=== PATIENT | male | born 1950 | race Caucasian/White ===

== ENCOUNTER → 2017-10-30 | Outpatient (CLI) | payer MEDICARE ==
[~2017-10-30] MED LIST: AMLO5TAB2 PO; ASPI-621 PO; ATOR20TA PO; CLOP75TA PO; HYDR-3342 PO; LISI40TA PO; MAGNESIUM PO; METO50TA82 PO; PANT40TA5 PO; SERT50TA5 PO; VARD20TA2 PO; ZOLP5TAB6 PO
== END ==
LOC: CVU 09:37
PROVIDERS: ATTEND Internal Medicine Cardiovascular Disease
DX: I35.0 Nonrheumatic aortic (valve) stenosis (principal); I51.7 Cardiomegaly; I25.10 Atherosclerotic heart disease of native coronary artery without angina pectoris; I71.9 Aortic aneurysm of unspecified site, without rupture; I10 Essential (primary) hypertension; E78.5 Hyperlipidemia, unspecified; Z86.73 Personal history of transient ischemic attack (TIA), and cerebral infarction without residual deficits
CPT/HCPCS: 93306

== ENCOUNTER → 2017-11-24 | Outpatient (CLI) | payer MEDICARE ==
[~2017-11-24] MED LIST changes: +REGADENOSON 0.4 MG/5 ML SYRINGE ONE
== END | disposition home or self-care (01) ==
LOC: CFH 07:37
PROVIDERS: ATTEND Physician Assistant Medical
DX: I25.10 Atherosclerotic heart disease of native coronary artery without angina pectoris (principal)
CPT/HCPCS: 78452; 93017; A9502; J2785

== ENCOUNTER → 2020-12-21 | Outpatient (CLI) | payer MEDICARE ==
[~2020-12-21] MED LIST changes: +AMLO-150 PO; -AMLO5TAB2 PO; -ASPI-621 PO; +ASPI81TA45 PO; -LISI40TA PO; +LISI40TA9 PO; -PANT40TA5 PO; +PANT40TA6 PO; +SERT50TA28 PO; -SERT50TA5 PO
== END | disposition home or self-care (01) ==
LOC: CFH 08:04
PROVIDERS: ATTEND Internal Medicine Cardiovascular Disease
DX: I21.19 ST elevation (STEMI) myocardial infarction involving other coronary artery of inferior wall (principal); I25.9 Chronic ischemic heart disease, unspecified; R07.9 Chest pain, unspecified; I10 Essential (primary) hypertension; I48.0 Paroxysmal atrial fibrillation
CPT/HCPCS: 78452; 93017; A9502; J2785

== ENCOUNTER 2021-01-15 08:03 | Observation (INO) | payer MEDICARE ==
[~2021-01-15] VITALS: Ht 175.3 cm; Wt 98.9 kg
[~2021-01-15 08:03] MED LIST changes: -REGADENOSON 0.4 MG/5 ML SYRINGE ONE
[2021-01-15] MEDS ORDERED: NITROGLYCERIN 5 MG/ML, 10ML ONE (08:24)
[2021-01-15 08:59] LABS: BASOPHILS % (AUTO) 1 % (0-1); EOSINOPHILS % (AUTO) 2 % (1-7); LYMPHOCYTES % (AUTO) 13 % (22-44); MEAN CORPUSCULAR HEMOGLOBIN 30.9 pg (27.5-34.5); MEAN PLATELET VOLUME 8.4 fL (7.4-10.4); MONOCYTES % (AUTO) 12 % (2-9); NEUTROPHILS % (AUTO) 72 % (42-75); PLATELET COUNT 228 x10^3/uL (130-400); RED BLOOD COUNT 5.32 x10^6/uL (4.38-5.82); RED CELL DISTRIBUTION WIDTH 14.6 % (9.4-14.8)
[2021-01-15] MEDS ORDERED: PRIM50TA34 PO (09:06)
[2021-01-15] MEDS ORDERED: RIVA20TA PO (09:06)
[2021-01-15] MEDS ORDERED: NITR0.6T4 SL (09:06)
[2021-01-15] MEDS ORDERED: COLC0.6T37 PO (09:06)
[2021-01-15] MEDS ORDERED: FINA5TAB4 PO (09:06)
[2021-01-15] MEDS ORDERED: LEVO150T5 PO (09:06)
[2021-01-15] MEDS ORDERED: BACL-19 PO (09:06)
[2021-01-15 09:07] LABS: MD NO
[2021-01-15 09:11] LABS: ANION GAP 6 mmol/L (5-15); CHLORIDE 107 mmol/L (98-107); CREATININE 1.24 mg/dL (0.7-1.3)
[2021-01-15] MEDS ORDERED: FENTANYL PF 100 MCG/2ML ONE (09:27)
[2021-01-15] MEDS ORDERED: BIVALIRUDIN 250 MG ONE ×2 (09:27→10:43)
[2021-01-15] MEDS ORDERED: MIDAZOLAM 1 MG/ML, 5ML ONE (09:27)
[2021-01-15] MEDS ORDERED: LIDOCAINE-MPF 1%, 5ML ONE (09:27)
[2021-01-15] MEDS ORDERED: TICAGRELOR 90 MG TABLET ONE ×2 (09:27→10:43)
[2021-01-15] MEDS ORDERED: HEPARIN 1,000 UNITS/ML, 10ML ONE (09:27)
[2021-01-15] MEDS ORDERED: VERAPAMIL 2.5 MG/ML, 2ML ONE (09:27)
[2021-01-15] MEDS ORDERED: ASPIRIN 325 MG TABLET EC ONE (10:43)
[2021-01-15] MEDS ORDERED: BIVALIRUDIN 250 MG in SODIUM CHLORIDE 0.9% 50 ML IV SCH (11:00)
[2021-01-15] MEDS ORDERED: ZOLPIDEM 5MG TABLET PO PRN (11:00)
[2021-01-15] MEDS: SODIUM CHLORIDE 0.9% 1,000 ML IV SCH ×2 (11:00→19:21)
[2021-01-15] MEDS ORDERED: BACLOFEN 10 MG TABLET PO PRN (11:00)
[2021-01-15] MEDS ORDERED: SODIUM CHLORIDE 0.9% 1,000 ML IV SCH (11:00)
[2021-01-15 14:20] VITALS: BP 129/71
[2021-01-15] MEDS ORDERED: ACETAMINOPHEN 325 MG TABLET PO PRN (14:30)
[2021-01-15] MEDS: METOPROLOL TARTRATE 25 MG TAB PO SCH (17:33)
[2021-01-15 19:29] VITALS: BP 133/79
[2021-01-15] MEDS: TICAGRELOR 90 MG TABLET PO SCH (20:28)
[2021-01-15] MEDS ORDERED: ATORVASTATIN 20 MG TABLET PO SCH (21:00)
[2021-01-16 00:21] VITALS: BP 150/80
[2021-01-16] MEDS: SODIUM CHLORIDE 0.9% 1,000 ML IV SCH ×2 (01:08→10:22)
[2021-01-16] MEDS: METOPROLOL TARTRATE 25 MG TAB PO SCH (05:06)
[2021-01-16] MEDS ORDERED: LEVOTHYROXINE 150 MCG TABLET PO SCH (06:00)
[2021-01-16 06:35] LABS: ANION GAP 6 mmol/L (5-15); CALCIUM 8.6 mg/dL (8.5-10.1); CHLORIDE 111 mmol/L (98-107); CREATININE 1.15 mg/dL (0.7-1.3)
[2021-01-16 06:58] VITALS: BP 151/74
[2021-01-16] MEDS ORDERED: FINASTERIDE 5 MG TABLET PO SCH (09:00)
[2021-01-16] MEDS ORDERED: AMLODIPINE 10 MG TAB PO SCH (09:00)
[2021-01-16] MEDS: TICAGRELOR 90 MG TABLET PO SCH (09:00)
[2021-01-16] MEDS ORDERED: ASPIRIN 81 MG TABLET EC PO SCH (09:00)
[2021-01-16] MEDS ORDERED: PANTOPRAZOLE 40MG TABLET PO SCH (09:00)
[2021-01-16] MEDS ORDERED: TICA90TA PO (09:41)
== END 2021-01-16 11:20 | disposition left against medical advice (07) ==
LOC: CACL 08:03 → ORIP 10:46 → 5SO 13:56
PROVIDERS: ADMIT Internal Medicine Cardiovascular Disease; ATTEND Internal Medicine Cardiovascular Disease
DX: I25.10 Atherosclerotic heart disease of native coronary artery without angina pectoris (principal); I48.0 Paroxysmal atrial fibrillation; I12.9 Hypertensive chronic kidney disease with stage 1 through stage 4 chronic kidney disease, or unspecified chronic kidney disease; N18.31 Chronic kidney disease, stage 3a; E03.9 Hypothyroidism, unspecified; E66.9 Obesity, unspecified; K21.9 Gastro-esophageal reflux disease without esophagitis; I71.9 Aortic aneurysm of unspecified site, without rupture; E78.2 Mixed hyperlipidemia; I35.0 Nonrheumatic aortic (valve) stenosis; F10.10 Alcohol abuse, uncomplicated; F17.200 Nicotine dependence, unspecified, uncomplicated; Z86.73 Personal history of transient ischemic attack (TIA), and cerebral infarction without residual deficits; Z79.899 Other long term (current) drug therapy
CPT/HCPCS: 36415; 80048; 85025; 92920; 93005; 93458; 99156; 99157; C1725; C1769; C1874; C1887; C1894; G0378; J0583; J1644; J2250; J3010; Q9967

== ENCOUNTER → 2021-01-21 | Outpatient (CLI) | payer MEDICARE ==
[~2021-01-21] MED LIST changes: +BACL-19 PO; +COLC0.6T37 PO; +FINA5TAB4 PO; +LEVO150T5 PO; +NITR0.6T4 SL; +OMNIPAQUE 350 MG/ML, 150 ML BOTTLE ONE; +PRIM50TA34 PO; +RIVA20TA PO; +TICA90TA PO
== END | disposition home or self-care (01) ==
LOC: CFH 08:16
PROVIDERS: ATTEND Physician Assistant
DX: K57.30 Diverticulosis of large intestine without perforation or abscess without bleeding (principal); N28.1 Cyst of kidney, acquired; N28.89 Other specified disorders of kidney and ureter; K42.9 Umbilical hernia without obstruction or gangrene; M51.36 Other intervertebral disc degeneration, lumbar region
CPT/HCPCS: 74178; Q9967

== ENCOUNTER → 2021-04-30 | Outpatient (CLI) | payer MEDICARE ==
[~2021-04-30] MED LIST changes: -OMNIPAQUE 350 MG/ML, 150 ML BOTTLE ONE
[2021-04-30 13:34] LABS: BASOPHILS % (AUTO) 1 % (0-1); EOSINOPHILS % (AUTO) 1 % (1-7); LYMPHOCYTES % (AUTO) 17 % (22-44); MEAN CORPUSCULAR HEMOGLOBIN 31.4 pg (27.5-34.5); MEAN CORPUSCULAR HGB CONC 34.3 g/dL (33.2-36.2); MEAN PLATELET VOLUME 8.7 fL (7.4-10.4); MONOCYTES % (AUTO) 10 % (2-9); NEUTROPHILS % (AUTO) 71 % (42-75); PLATELET COUNT 221 x10^3/uL (130-400); RED BLOOD COUNT 5.39 x10^6/uL (4.38-5.82); RED CELL DISTRIBUTION WIDTH 15.3 % (9.4-14.8)
[2021-04-30 14:15] LABS: ANION GAP 9 mmol/L (5-15); CALCIUM 9.3 mg/dL (8.5-10.1); CHLORIDE 111 mmol/L (98-107); CREATININE 1.21 mg/dL (0.7-1.3)
[2021-04-30 14:16] LABS: ALANINE AMINOTRANSFERASE 21 U/L (12-78); ALBUMIN 3.7 g/dL (3.4-5.0); ALKALINE PHOSPHATASE 72 U/L (45-117); BILIRUBIN,TOTAL 1.1 mg/dL (0.2-1.0); CHOLESTEROL, TOTAL 125 mg/dL (140-239); TOTAL PROTEIN 7.3 g/dL (6.4-8.2); TRIGLYCERIDES 137 mg/dL (50-200); VLDL CHOLESTEROL 27 mg/dL (0-25)
[2021-04-30 14:17] LABS: CHOL/HDL RATIO 3.4; HDL CHOL % 30 % (26-37); HDL CHOLESTEROL (DIRECT) 37 mg/dL (40-60); LDL CHOLESTEROL,CALCULATED 61 mg/dL (54-169); LDL/HDL RATIO 1.6 (0.5-3.0)
== END | disposition home or self-care (01) ==
LOC: LAB 13:01
PROVIDERS: ATTEND Registered Nurse
DX: I13.10 Hypertensive heart and chronic kidney disease without heart failure, with stage 1 through stage 4 chronic kidney disease, or unspecified chronic kidney disease (principal); N18.31 Chronic kidney disease, stage 3a; E89.0 Postprocedural hypothyroidism; R97.20 Elevated prostate specific antigen [PSA]; E78.2 Mixed hyperlipidemia; I10 Essential (primary) hypertension; N25.81 Secondary hyperparathyroidism of renal origin; M10.9 Gout, unspecified; G25.0 Essential tremor; I48.0 Paroxysmal atrial fibrillation
CPT/HCPCS: 36415; 80053; 80061; 83970; 84100; 84153; 84443; 84550; 85025